=== PATIENT | male | born 1950 | race Caucasian/White ===

== ENCOUNTER 2022-10-06 22:42 | Emergency (ER) | payer MEDICARE, SELFPAY ==
--- NOTE | 2022-10-06 22:46 | XRR_ITS ---
PROCEDURE INFORMATION: Exam: XR Chest Exam date and time: 10/06/2022 11:04 PM Age: 72 years old Clinical indication: Pain; Chest pressure; Prior surgery; Surgery date: 6+ months; Surgery type: Shoulder; Additional info: Cp TECHNIQUE: Imaging protocol: Radiologic exam of the chest. Views: 1 view. COMPARISON: No relevant prior studies available. FINDINGS: Lungs: Bibasilar atelectasis versus minimal infiltrate. Mild pulmonary vascular congestion. Pleural spaces: Unremarkable. No pleural effusion. No pneumothorax. Heart/Mediastinum: Cardiomegaly. Bones/joints: Unremarkable. XR/XR chest 1V portable [id number] IMPRESSION: 1. Cardiomegaly. 2. Bibasilar atelectasis versus minimal infiltrate. 3. Mild pulmonary vascular congestion.
--- NOTE | 2022-10-06 22:46 | ECG_ITS ---
[facility] Test Date: 2022-10-06 Pat Name: marina alcantar Department: Room: Gender: Male Network Coordinator: : 1950 Requested By: Ivania Espinal Order Number: [id number] Rhonda MD: Uriel Hyatt M.D. Measurements Intervals [place] Rate: 52 P: 51 NC: 159 QRS: 33 QRSD: 117 T: 40 QT: 435 QTc: 407 Interpretive Statements SINUS BRADYCARDIA POSSIBLE LATERAL MYOCARDIAL INFARCTION , OF INDETERMINATE AGE [30 ms Q WAVE IN I/aVL/V5/V6] No previous ECG available for comparison Electronically Signed On 10-07-2022 2:53:46 CDT by Uriel Hyatt M.D. [id number]
[2022-10-06 22:51] VITALS: BP 154/100; PULSE 55; RESP 28; TEMP 36.6; O2SAT 92; BMI 41.5
--- NOTE | 2022-10-06 22:56 | W.ED.CHESTPA ---
HPI - Chest Pain General: Chief Complaint: Chest Pain Stated Complaint: Chest pain Time Seen by Provider: 10/06/22 22:46 Source: patient Mode of arrival: ambulatory Limitations: no limitations History of Present Illness: 72-year-old male states that he has been having some epigastric pain started roughly 5 to 6 hours ago states it is a burning type pain is radiated into his chest currently is getting concerned as he has a history of A-fib he is in sinus bradycardia here with heart rate of 85 he states pain is a 4 out of 10 denies any diaphoresis or shortness of breath. Denies any worsening improving factors he states he took Tums with no relief Associated symptoms: Reports abdominal pain; Deny dyspnea, fever(s), nausea or vomiting Review of Systems Const: Denies: fever(s), chills, body aches or change in appetite Eyes: Denies: blurry vision or eye discomfort ENMT: Denies: throat pain or dental pain Card: Reports: chest pain Resp: Denies: dyspnea GI: Reports: abdominal pain; Denies: nausea, vomiting or diarrhea Musc: Denies: neck pain or back pain Skin/Breast: Denies: rash Neuro: Denies: headache(s) PFSH ED PFSH: Medical History (Updated 10/07/22 @ 01:10 by Ivania Espinal MD) Atrial fibrillation Social History (Updated 10/06/22 @ 22:58 by Ivania Espinal MD) Substance/Drug Use: never Physical Exam Const: COMMON NORMALS: no acute distress, patient oriented x3 and healthy appearing HENMT: COMMON NORMALS: normocephalic and atraumatic HEAD & SCALP: normocephalic and atraumatic Neck/C-Spine: COMMON NORMALS: full ROM and supple Chest: COMMONS NORMALS: normal inspection of the chest and normal palpation of entire chest wall Resp: COMMON NORMALS: normal respiratory effort, No retractions, No use of accessory muscles and clear to auscultation bilaterally AUSCULTATION: clear to auscultation bilaterally Cardio: COMMON NORMALS: regular rhythm and No murmurs present (Cardio) RATE: bradycardic RHYTHM: regular rhythm GI: COMMON NORMALS: Normal to inspection, nondistended, normoactive bowel sounds present, Soft to palpation, non-tender and no masses PALPATION: Yes Soft to palpation Extremity: COMMON NORMALS: normal to inspection and full ROM Neuro: COMMON NORMALS: patient oriented x3, moves all extremities and no focal motor deficits Psych: COMMON NORMALS: mental status grossly normal, Normal thought process present and cooperative THOUGHT PROCESS: Normal thought process present Skin: COMMON NORMALS: no rashes or lesions noted and no wounds GENERAL SKIN EXAM: no rashes or lesions noted Course Vital Signs: Vital signs: Vital Signs Temperature 98 F 10/06/22 22:51 Pulse Rate 60 10/07/22 00:00 Respiratory Rate 21 H 10/07/22 00:00 Blood Pressure 134/84 10/07/22 00:00 Pulse Oximetry 91 10/07/22 00:00 Oxygen Delivery Me thod Room Air 10/07/22 00:00 MDM - Chest Pain Medical Decision Making Patient presents with chest pains atypical in nature GI cocktail took his pain away his troponins here are normal we will place him on Protonix he is stable for discharge he is to follow-up with PCP and return if worsening. Medical Records I reviewed the patient's medical records. Lab Data I reviewed the patient's lab results. 10/06/22 22:54 10/06/22 22:54 Radiology Impressions Chest X-Ray 10/06/22 22:46 IMPRESSION: 1. Cardiomegaly. 2. Bibasilar atelectasis versus minimal infiltrate. 3. Mild pulmonary vascular congestion. Laboratory Results WBC 9.9 10^3/uL (4.0-10.0) 10/06/22 22:54 RBC 4.92 10^6/uL (4.1-5.3) 10/06/22 22:54 Hgb 14.5 g/dL (11.7-16.6) 10/06/22 22:54 Hct 46.1 % (42.0-52.0) 10/06/22 22:54 MCV 93.7 fl (80-94) 10/06/22 22:54 MCH 29.5 pg (28.0-34.0) 10/06/22 22:54 MCHC 31.5 g/dL (30.0-36.0) 10/06/22 22:54 RDW 14.2 % (12.1-15.1) 10/06/22 22:54 Plt Count 278 10^3/cmm (130-400) 10/06/22 22:54 MPV 9.6 fL (7.4-10.4) 10/06/22 22:54 Neut % (Auto) 71.6 % 10/06/22 22:54 Lymph % (Auto) 12.7 % 10/06/22 22:54 Nye % (Auto) 8.5 % 10/06/22 22:54 Eos % (Auto) 5.8 % 10/06/22 22:54 Baso % (Auto) 0.9 % 10/06/22 22:54 Neut # (Auto) 7.10 10^3/uL (1.8-7.7) 10/06/22 22:54 Lymph # (Auto) 1.3 10^3/uL (0.8-4.8) 10/06/22 22:54 Nye # (Auto) 0.8 10^3/uL (0.2-0.9) 10/06/22 22:54 Eos # (Auto) 0.6 10^3/uL (0.0-0.8) 10/06/22 22:54 Baso # (Auto) 0.1 10^3/uL (0.0-0.1) 10/06/22 22:54 Nucleated RBC % (auto) 0 % 10/06/22 22:54 Nucleated RBCs # 0.0 /100WBC 10/06/22 22:54 PT 21.00 SECONDS (12.1-14.9) H 10/06/22 22:54 INR 1.74 (0.8-1.2) H 10/06/22 22:54 Sodium 138 mmol/L (136-145) 10/06/22 22:54 Potassium 4.0 mmol/L (3.5-5.1) 10/06/22 22:54 Chloride 100 mmol/L (98-107) 10/06/22 22:54 Carbon Dioxide 28 mmol/L (22-29) 10/06/22 22:54 Anion Gap 14.0 (5-19) 10/06/22 22:54 BUN 9 mg/dL (8-23) 10/06/22 22:54 Creatinine 0.7 mg/dL (0.7-1.2) 10/06/22 22:54 GFR Calculation 111.5 mL/min (90-130) 10/06/22 22:54 Glucose 116 mg/dL (65-115) H 10/06/22 22:54 Calculated Osmolality 286 mOsm/kg (285-295) 10/06/22 22:54 Calcium 9.3 mg/dL (8.5-10.5) 10/06/22 22:54 Total Bilirubin 0.5 mg/dL (0.15-1.2) 10/06/22 22:54 AST 20 U/L (0-40) 10/06/22 22:54 ALT 15 U/L (0-41) 10/06/22 22:54 Alkaline Phosphatase 88 U/L (40-130) 10/06/22 22:54 Troponin T Baseline 17 ng/L (0-15) H 10/06/22 22:54 Troponin T 120 Minute 16.43 ng/L (0-15) H 10/07/22 00:44 Delta Troponin T -0.57 ABS# (0-10) L 10/07/22 00:44 Total Protein 7.1 g/dL (6.6-8.7) 10/06/22 22:54 Albumin 4.2 g/dL (3.5-5.2) 10/06/22 22:54 Globulin 2.9 g/dL (1.3-4.6) 10/06/22 22:54 Lipase 33 U/L (13-60) 10/06/22 22:54 EKG Data EKG 1: I personally reviewed and interpreted this EKG as follows: EKG interpretation date: 10/06/22 EKG interpretation time: 22:50 Interpretation: sinus fatoumata hr [address] or t wave abnormalities qrs 117 qtc 416 Discharge Plan Discharge Patient Disposition: Home Clinical Impression: Chest pain Prescriptions: New pantoprazole [Protonix] 40 mg tablet,delayed release (DR/EC) 40 mg PO DAILY Qty: 60 0RF Discharge Orders: Discharge ED (Routine); Ordered 10/07/22 Ordered By: Ivania Espinal Discharge Diet: Advance as tolerated Discharge Activity: Resume usual activity Patient Instructions: Chest Pain (ED) Coding Level of Care Code ED Technical Support Representative for Miguel Angel Londono
[2022-10-06 23:00] VITALS: BP 142/82; PULSE 52; RESP 20; O2SAT 95
[2022-10-06 23:03] LABS: Basophils # 0.1 10^3/uL (0.0-0.1); Basophils % 0.9 %; Eosinophils # 0.6 10^3/uL (0.0-0.8); Eosinophils % 5.8 %; Hematocrit 46.1 % (42.0-52.0); Hemoglobin 14.5 g/dL (11.7-16.6); Lymphocytes # 1.3 10^3/uL (0.8-4.8); Lymphocytes % 12.7 %; Mean Corpuscular HGB Conc 31.5 g/dL (30.0-36.0); Mean Corpuscular Hemoglobin 29.5 pg (28.0-34.0); Mean Corpuscular Volume 93.7 fl (80-94); Mean Platelet Volume 9.6 fL (7.4-10.4); Monocytes # 0.8 10^3/uL (0.2-0.9); Monocytes % 8.5 %; Neutrophils % 71.6 %; Nucleated Red Blood Cells % 0 %; Platelet Count 278 10^3/cmm (130-400); Red Blood Count 4.92 10^6/uL (4.1-5.3); Red Cell Distribution Width 14.2 % (12.1-15.1); White Blood Count 9.9 10^3/uL (4.0-10.0)
[2022-10-06] MEDS: aspirin 81 mg Chew Tablet 324 MG PO (23:05)
[2022-10-06] MEDS: lidocaine 2% viscous 15 ML, aluminum-mag hydrox-simethicon 30 ML, sucralfate oral liq 1 GM PO (23:06)
[2022-10-06 23:15] LABS: INR 1.74 (0.8-1.2)
[2022-10-06 23:23] LABS: Troponin(5th) Baseline 17 ng/L (0-15)
[2022-10-06 23:25] LABS: Alanine Aminotransferase 15 U/L (0-41); Albumin Level 4.2 g/dL (3.5-5.2); Alkaline Phosphatase 88 U/L (40-130); Aspartate Amino Transferase 20 U/L (0-40); Blood Urea Nitrogen 9 mg/dL (8-23); Calcium 9.3 mg/dL (8.5-10.5); Carbon Dioxide 28 mmol/L (22-29); Chloride 100 mmol/L (98-107); Globulin 2.9 g/dL (1.3-4.6); Glomerular Filtration Rate 111.5 mL/min (90-130); Glucose 116 mg/dL (65-115); Lipase 33 U/L (13-60); Osmolality Calculated 286 mOsm/kg (285-295); Sodium 138 mmol/L (136-145); Total Bilirubin 0.5 mg/dL (0.15-1.2); Total Protein 7.1 g/dL (6.6-8.7)
[2022-10-06 23:30] VITALS: BP 133/84; PULSE 60; RESP 21; O2SAT 93
[2022-10-07] VITALS: BP 134/84; PULSE 60; RESP 21; O2SAT 91
--- NOTE | 2022-10-07 00:35 | ECG_ITS ---
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 Measurements Intervals [place] Rate: 49 P: 48 SC: 161 QRS: 29 QRSD: 116 T: 36 QT: 441 QTc: 402 Interpretive Statements SINUS BRADYCARDIA INCOMPLETE RIGHT BUNDLE BRANCH BLOCK [90+ ms QRS DURATION, TERMINAL R IN V1/V2, 40+ ms S IN I/aVL/V4/V5/V6] Compared to ECG 10/06/2022 22:50:03 Incomplete right bundle-branch block now present Myocardial infarct finding no longer present Electronically Signed On 10-07-2022 2:57:33 CDT by Uriel Hyatt M.D. [id number]
[2022-10-07 01:05] LABS: Troponin 5 2HR 16.43 ng/L (0-15)
[2022-10-07 01:08] LABS: Troponin 5 2HR Delta -0.57 ABS# (0-10)
[2022-10-07 01:33] VITALS: BP 154/97; PULSE 48; RESP 21; O2SAT 92
== END 2022-10-07 01:36 | disposition home or self-care (01) ==
PROVIDERS: Emergency Provider Emergency Medicine; PCP Family Medicine
DX: R07.9 Chest pain, unspecified (principal); I48.91 Unspecified atrial fibrillation
CPT/HCPCS: 71045; 80053; 83690; 84484; 85025; 85610; 93005; 99285